=== PATIENT | male | born 1940 ===

== ENCOUNTER 2025-01-04 08:00 | Day surgery (SDC) | payer OTHER ==
[~2025-01-04 08:00] MED LIST: DOXAZOSIN MESYLA4 MG PO; LOSARTAN-HCTZ1 EAC2 PO
[2025-01-04] MEDS ORDERED: CEFTRIAXONE SODIUM 2,000 MG VIAL ONE (09:27)
[2025-01-04] MEDS ORDERED: METRONIDAZOLE/SODIUM CHLORIDE 500 MG/100 ML PIGGYBACK IV ONE (09:27)
[2025-01-04] MEDS ORDERED: HEMOSTATIC MATRIX 1 KIT KIT TOP ONE (10:18)
[2025-01-04] MEDS ORDERED: BUPIVACAINE HCL/Mpf 0.5% 10ML VIAL ONE (10:18)
[2025-01-04] MEDS ORDERED: POVIDONE-IODINE 118 ML BOTT TOP ONE (10:18)
[2025-01-04] MEDS ORDERED: DIBUCAINE 30 GM TUBE ONE (10:18)
[2025-01-04] MEDS ORDERED: LIDOCAINE HCL 1%/EPINEPHRINE 20ML VIAL IJ ONE (10:19)
== END 2025-01-04 18:00 | disposition home or self-care (01) ==
LOC: CIR.AMB 08:00
PROVIDERS: ATTEND Colon & Rectal Surgery
DX: K62.89 Other specified diseases of anus and rectum (principal)